=== PATIENT | male | born 1940 | race Caucasian/White ===

== ENCOUNTER 2020-10-15 09:01 | Observation (INO) | payer MEDICARE ==
[2020-10-15] VITALS (10 sets, daily range): BP systolic 147–182; BP diastolic 54–81
[~2020-10-15] VITALS: Ht 177.8 cm; Wt 81.2 kg
[~2020-10-15 09:01] MED LIST: ALLO100T PO; AMLO-257 PO; ASPI-556 PO; CHLO25TA3 PO; GEMF600T89 PO; LOSA100T58 PO; LOVA40TA2 PO; OMEG1CAP67 PO; VITA1CAP20 PO
[2020-10-15 10:09] LABS: BASOPHILS % (AUTO) 0.5 % (0.0-5.0); EOSINOPHILS % (AUTO) 1.6 % (0.0-8.0); HEMATOCRIT 30.9 % (42-54); LYMPHOCYTES % (AUTO) 11.8 % (21.0-51.0); MEAN CORPUSCULAR HEMOGLOBIN 31.3 pg (27.0-33.0); MEAN CORPUSCULAR VOLUME 92.2 fL (79-99); MONOCYTES % (AUTO) 6.8 % (3.0-13.0); NEUTROPHILS % (AUTO) 78.8 % (40.0-77.0); PLATELET COUNT (AUTO) 406 K/uL (130-400); RED BLOOD CELL COUNT(AUTO) 3.35 MIL/uL (4.50-6.20); RED CELL DISTRIBUTION WIDTH 15.3 % (11.0-15.5); WHITE BLOOD COUNT (AUTO) 8.3 K/uL (4.8-10.8)
[2020-10-15 10:21] LABS: CREATININE 1.6 mg/dL (0.5-1.5); POTASSIUM 3.8 mmol/L (3.5-5.1)
[2020-10-15 10:24] LABS: PROTHROMBIN TIME 10.9 SEC (9.6-11.6)
[2020-10-15 10:26] LABS: PARTIAL THROMBOPLASTIN TIME 26.5 SEC (26.3-35.5)
[2020-10-15] MEDS ORDERED: ASPI-1197 PO (11:05)
[2020-10-15] MEDS ORDERED: LOVA40TA2 PO (11:05)
[2020-10-15] MEDS ORDERED: CHLO25TA3 PO (11:05)
[2020-10-15] MEDS ORDERED: VITA1TAB39 PO (11:05)
[2020-10-15] MEDS ORDERED: FISH1CAP63 PO (11:05)
[2020-10-15] MEDS ORDERED: ALLO100T PO (11:05)
[2020-10-15] MEDS ORDERED: AMLO-257 PO (11:05)
[2020-10-15] MEDS ORDERED: LOSA100T58 PO (11:05)
[2020-10-15] MEDS ORDERED: GEMF600T89 PO (11:05)
[2020-10-15] MEDS ORDERED: CHOL500050 PO (11:05)
[2020-10-15] MEDS ORDERED: ACETAMINOPHEN 325 MG TAB PO PRN (12:00)
[2020-10-15] MEDS ORDERED: GEMFIBROZIL 600 MG TABLET PO SCH (21:00)
[2020-10-15] MEDS ORDERED: LOSARTAN 100 MG TABLET PO SCH (21:00)
[2020-10-15] MEDS ORDERED: Lovastatin 40 MG PO SCH (21:00)
[2020-10-15] MEDS: ALLOPURINOL 100 MG TABLET PO SCH (21:28)
[2020-10-16] VITALS: BP 161/81
[2020-10-16 04:00] VITALS: BP 179/59
[2020-10-16 04:33] LABS: BASOPHILS % (AUTO) 0.4 % (0.0-5.0); EOSINOPHILS % (AUTO) 1.9 % (0.0-8.0); HEMATOCRIT 27.8 % (42-54); LYMPHOCYTES % (AUTO) 11.8 % (21.0-51.0); MEAN CORPUSCULAR HEMOGLOBIN 30.9 pg (27.0-33.0); MEAN CORPUSCULAR HGB CONC 33.1 g/dL (32.0-36.0); MEAN CORPUSCULAR VOLUME 93.3 fL (79-99); MONOCYTES % (AUTO) 7.1 % (3.0-13.0); NEUTROPHILS % (AUTO) 78.4 % (40.0-77.0); PLATELET COUNT (AUTO) 332 K/uL (130-400); RED BLOOD CELL COUNT(AUTO) 2.98 MIL/uL (4.50-6.20); RED CELL DISTRIBUTION WIDTH 15.2 % (11.0-15.5); WHITE BLOOD COUNT (AUTO) 8.1 K/uL (4.8-10.8)
[2020-10-16 05:05] LABS: CREATININE 1.7 mg/dL (0.5-1.5); POTASSIUM 3.8 mmol/L (3.5-5.1)
[2020-10-16] MEDS ORDERED: CHOLECALCIFEROL PO SCH (07:30)
[2020-10-16] MEDS: ALLOPURINOL 100 MG TABLET PO SCH (08:10)
[2020-10-16] MEDS ORDERED: [UNRECOGNIZED DRUG - OTHER] PO SCH (09:00)
[2020-10-16] MEDS ORDERED: Chlorthalidone 25 MG PO SCH (09:00)
[2020-10-16] MEDS ORDERED: VITAMIN B COMPLEX 1 CAPSULE PO SCH (09:00)
[2020-10-16] MEDS ORDERED: B COMPLEX WITH VITAMIN C PO SCH (09:00)
[2020-10-16] MEDS ORDERED: AMLODIPINE 5 MG TAB PO SCH (09:00)
[2020-10-16 09:26] VITALS: BP 164/68
== END 2020-10-16 12:45 | disposition home or self-care (01) ==
LOC: 3AH 09:01 → EDSTATUS 10:00
PROVIDERS: ADMIT Internal Medicine Nephrology; ATTEND Internal Medicine Nephrology
DX: R80.9 Proteinuria, unspecified (principal); I10 Essential (primary) hypertension; N28.1 Cyst of kidney, acquired; M10.9 Gout, unspecified; E78.5 Hyperlipidemia, unspecified; D64.9 Anemia, unspecified; I73.9 Peripheral vascular disease, unspecified; H54.62 Unqualified visual loss, left eye, normal vision right eye; F17.200 Nicotine dependence, unspecified, uncomplicated; Z90.49 Acquired absence of other specified parts of digestive tract; Z79.899 Other long term (current) drug therapy
CPT/HCPCS: 36415 ×2; 50200; 76942; 80048 ×2; 85025 ×2; 85610; 85730; 88305; 88313; 88346; 88348; 88350; G0378 ×26; G0379

== ENCOUNTER → 2022-01-06 | Outpatient (CLI) | payer MEDICARE ==
[~2022-01-06] MED LIST changes: +ASPI-1197 PO; -ASPI-556 PO; +CHOL500050 PO; +FISH1CAP63 PO; -OMEG1CAP67 PO; -VITA1CAP20 PO; +VITA1TAB39 PO
== END | disposition home or self-care (01) ==
LOC: SHCH 07:41
PROVIDERS: ATTEND Internal Medicine Cardiovascular Disease
DX: I11.9 Hypertensive heart disease without heart failure (principal); I49.3 Ventricular premature depolarization; E78.5 Hyperlipidemia, unspecified; R18.8 Other ascites
CPT/HCPCS: 93306

== ENCOUNTER 2023-09-29 10:39 | Inpatient (IN) | payer MEDICARE ==
[~2023-09-29] VITALS: Ht 180.3 cm; Wt 86.5 kg
[~2023-09-29 10:39] MED LIST changes: -LOSA100T58 PO; +LOSA100T59 PO
[2023-09-29 11:24] LABS: BASOPHILS # (AUTO) 0.02 K/uL (0.00-0.20); BASOPHILS % (AUTO) 0.2 % (0.0-5.0); EOSINOPHILS # (AUTO) 0.04 K/uL (0.00-0.70); EOSINOPHILS % (AUTO) 0.5 % (0.0-8.0); IMMATURE GRANULOCYTE ABSOLUTE 0.03 K/uL (0-1); LYMPHOCYTES # (AUTO) 0.5 K/uL (1.0-4.8); LYMPHOCYTES % (AUTO) 6.3 % (21.0-51.0); MEAN CORPUSCULAR HEMOGLOBIN 27.6 pg (27.0-33.0); MEAN CORPUSCULAR VOLUME 83.7 fL (79-99); MONOCYTES # (AUTO) 0.6 K/uL (0.1-1.0); MONOCYTES % (AUTO) 7.2 % (3.0-13.0); NEUTROPHILS # (AUTO) 7.1 K/uL (1.8-7.7); NEUTROPHILS % (AUTO) 85.4 % (40.0-77.0); PLATELET COUNT (AUTO) 425 K/uL (130-400); RED BLOOD CELL COUNT(AUTO) 2.46 MIL/uL (4.50-6.20); WHITE BLOOD COUNT (AUTO) 8.4 K/uL (4.8-10.8)
[2023-09-29 11:42] LABS: ALBUMIN 2.3 g/dL (3.5-5.0); BILIRUBIN,TOTAL 0.3 mg/dL (0.2-1.0); CREATININE 4.6 mg/dL (0.5-1.3); TOTAL PROTEIN, SERUM 5.8 g/dL (6.0-8.3)
[2023-09-29 11:44] LABS: B-TYPE NATRIURETIC PEPTIDE 2230 pg/mL (0-100)
[2023-09-29 11:46] LABS: HEMATOCRIT 20.6 % (42-54)
[2023-09-29 12:13] LABS: ABG BASE EXCESS 0.3 mmol/L (-2.0-3.0); ABG HCO3 23.6 mmol/L (21.0-28.0); ABG OXYGEN SATURATION 96.5 % (95.0-99.0); ABG PCO2 34 mmHg (35-48); ABG PH 7.454 (7.35-7.450); PO2, ARTERIAL BG 81.1 mmHg (83.0-108.0); VENT MODE, BG RA (ROOM AIR)
[2023-09-29] MEDS: POTASSIUM BICARB/CIT AC 25 MEQ TABLET.EFF PO ONE (12:57)
[2023-09-29] MEDS: BUMETANIDE 1MG/4ML VIAL IVP SCH ×2 (12:57→23:07)
[2023-09-29] MEDS ORDERED: PROP225C8 PO (13:56)
[2023-09-29] MEDS ORDERED: ROSU5TAB12 PO (13:56)
[2023-09-29] MEDS ORDERED: TORS20TA4 PO (13:56)
[2023-09-29] MEDS ORDERED: AMLO-258 PO (13:56)
[2023-09-29] MEDS ORDERED: EMPA10TA PO (13:56)
[2023-09-29] MEDS ORDERED: SODI650T PO (13:56)
[2023-09-29] MEDS ORDERED: LACTULOSE 20 GM/30 ML UDCUP PO PRN (15:30)
[2023-09-29] MEDS ORDERED: LABETALOL 20MG SYG IV PRN (15:30)
[2023-09-29] MEDS ORDERED: CLONIDINE HCL 0.1 MG TABLET PO PRN (15:30)
[2023-09-29] MEDS ORDERED: TEMAZEPAM 15 MG CAPSULE PO PRN (15:30)
[2023-09-29] MEDS ORDERED: ONDANSETRON 4MG INJ IVP PRN (15:30)
[2023-09-29] MEDS ORDERED: ACETAMINOPHEN 650 MG SUPPOSITORY RC PRN (15:30)
[2023-09-29] MEDS ORDERED: HYDRALAZINE 20MG/ML VIAL IV PRN (15:30)
[2023-09-29 15:44] LABS: APPEARANCE,URINE CLEAR (CLEAR); BILIRUBIN,URINE NEGATIVE (NEGATIVE); COLOR,URINE LIGHT-YELLOW (YELLOW); GLUCOSE, URINE (UA) 50 mg/dL (NEGATIVE); KETONES,URINE NEGATIVE (NEGATIVE); LEUKOCYTE ESTERASE ,URINE NEGATIVE Leu/uL (NEGATIVE); NITRATE,URINE NEGATIVE (NEGATIVE); OCCULT BLOOD,URINE NEGATIVE (NEGATIVE); PROTEIN,URINE 100 mg/dL (NEGATIVE); UROBILINOGEN,URINE 0.2 mg/dL (0.2-1.0)
[2023-09-29 15:45] LABS: ADD UA MICROSCOPIC YES
[2023-09-29 15:52] LABS: BACTERIA,URINE Rare /HPF (None Seen); RBC,URINE 0-1 /HPF (0-1); SQUAMOUS EPITHELIAL CELL,UR Rare /HPF (0-2); WBC,URINE 0-1 /HPF (0-1)
[2023-09-29 15:53] VITALS: PULSE 65; RESP 20
[2023-09-29] MEDS: ALBUTEROL 0.083% 2.5 MG/3 ML INH IH PRN (15:53)
[2023-09-29 15:54] VITALS: PULSE 65; RESP 20; O2SAT 96
[2023-09-29] MEDS: INSULIN HUMULIN R 100 UNIT/ML 3ML SQ SCH (16:30)
[2023-09-29 16:35] LABS: % IRON SATURATION 26.9 % (30-44)
[2023-09-29] MEDS ORDERED: CHLO50TA PO (21:37)
[2023-09-29] MEDS ORDERED: FOLI1TAB85 PO (21:37)
[2023-09-29 22:40] VITALS: O2SAT 99
[2023-09-29 22:54] VITALS: RESP 19; O2SAT 99
[2023-09-29 23:09] LABS: SARS-CoV-2, RNA, NAAT NEGATIVE SARS CoV-2 (NEGATIVE)
[2023-09-29 23:11] LABS: INFLUENZA TYPE A NEGATIVE FOR TYPE A (NEG); INFLUENZA TYPE B NEGATIVE FOR TYPE B (NEG)
[2023-09-30] VITALS (16 sets, daily range): BP systolic 129–150; BP diastolic 43–56; PULSE 55–65; RESP 18–20; O2SAT 97–99
[2023-09-30 04:16] LABS: HEMOGLOBIN A1C 4.8 % (4.0-6.0)
[2023-09-30 04:17] LABS: INR 0.96 (0.85-1.15); PROTHROMBIN TIME 11.4 SEC (9.6-11.6)
[2023-09-30 04:19] LABS: PARTIAL THROMBOPLASTIN TIME 30.9 SEC (26.3-35.5)
[2023-09-30 04:32] LABS: BILIRUBIN,TOTAL 0.2 mg/dL (0.2-1.0); CREATININE 4.5 mg/dL (0.5-1.3); MAGNESIUM 2.5 mg/dL (1.80-2.40); PHOSPHORUS 5.9 mg/dL (2.5-4.9); POTASSIUM 3.3 mmol/L (3.5-5.1); THYROID STIMULATING HORMONE 2.21 uIU/mL (0.36-3.74); URIC ACID 9.7 mg/dL (2.6-7.2)
[2023-09-30 06:20] LABS: BASOPHILS # (AUTO) 0.02 K/uL (0.00-0.20); BASOPHILS % (AUTO) 0.3 % (0.0-5.0); EOSINOPHILS # (AUTO) 0.12 K/uL (0.00-0.70); EOSINOPHILS % (AUTO) 1.6 % (0.0-8.0); IMMATURE GRANULOCYTE ABSOLUTE 0.03 K/uL (0-1); LYMPHOCYTES # (AUTO) 0.6 K/uL (1.0-4.8); LYMPHOCYTES % (AUTO) 8.1 % (21.0-51.0); MEAN CORPUSCULAR HEMOGLOBIN 27.7 pg (27.0-33.0); MEAN CORPUSCULAR HGB CONC 32.3 g/dL (32.0-36.0); MEAN CORPUSCULAR VOLUME 85.7 fL (79-99); MONOCYTES # (AUTO) 0.7 K/uL (0.1-1.0); MONOCYTES % (AUTO) 9.7 % (3.0-13.0); NEUTROPHILS # (AUTO) 6.1 K/uL (1.8-7.7); NEUTROPHILS % (AUTO) 79.9 % (40.0-77.0); PLATELET COUNT (AUTO) 400 K/uL (130-400); RED BLOOD CELL COUNT(AUTO) 2.24 MIL/uL (4.50-6.20); RED CELL DISTRIBUTION WIDTH 16.2 % (11.0-15.5); WHITE BLOOD COUNT (AUTO) 7.6 K/uL (4.8-10.8)
[2023-09-30 06:23] LABS: HEMATOCRIT 19.2 % (42-54)
[2023-09-30] MEDS ORDERED: PANTOPRAZOLE 40 MG/VIAL IVP SCH (09:00)
[2023-09-30] MEDS ORDERED: PROPAFENONE HCL 225 MG PO SCH (09:00)
[2023-09-30] MEDS: Vitamin B Complex/Vit C/Folic Acid PO SCH ×2 (09:00→09:09)
[2023-09-30] MEDS: PANTOPRAZOLE 40 MG TAB DR PO SCH (09:09)
[2023-09-30] MEDS: SODIUM BICARBONATE 650 MG TAB PO SCH (09:10)
[2023-09-30] MEDS: VITAMIN B COMPLEX 1 CAPSULE PO SCH (09:11)
[2023-09-30] MEDS: PROPAFENONE HCL 225 MG PO SCH (11:59)
[2023-09-30] MEDS: ROSUVASTATIN CALCIUM 5 MG PO SCH (12:00)
[2023-09-30] MEDS ORDERED: SOD FERRIC GLUC COMPLEX/SUC 125 MG in 0.9%NACL 100ML 100 ML IV SCH (12:30)
[2023-09-30] MEDS ORDERED: COMPOUND IV MISC 1 EACH IVSOLN MISC PRN (13:00)
[2023-09-30] MEDS: EPOETIN ALFA-EPBX (NON-ESRD) 10,000 UNIT/ML VIAL SQ SCH (15:27)
[2023-09-30] MEDS: BUMETANIDE 1MG/4ML VIAL IVP SCH (15:27)
[2023-09-30] MEDS: IRON SUCROSE COMPLEX 300 MG in 0.9% NACL 250ML 250 ML IV SCH (15:28)
[2023-09-30] MEDS: AMLODIPINE 5 MG TAB PO SCH (20:20)
[2023-09-30] MEDS: (Rosuvastatin Calcium 5 MG) PO SCH (21:33)
[2023-10-01] VITALS (12 sets, daily range): BP systolic 135–155; BP diastolic 44–88; PULSE 58–73; RESP 16–20; O2SAT 95–98
[2023-10-01 03:59] LABS: MEAN CORPUSCULAR HEMOGLOBIN 28.2 pg (27.0-33.0); MEAN CORPUSCULAR HGB CONC 33.7 g/dL (32.0-36.0); MEAN CORPUSCULAR VOLUME 83.9 fL (79-99); RED BLOOD CELL COUNT(AUTO) 2.48 MIL/uL (4.50-6.20); RED CELL DISTRIBUTION WIDTH 15.6 % (11.0-15.5); WHITE BLOOD COUNT (AUTO) 8.7 K/uL (4.8-10.8)
[2023-10-01 04:12] LABS: HEMATOCRIT 20.8 % (42-54)
[2023-10-01 04:22] LABS: ALBUMIN 1.7 g/dL (3.5-5.0); BILIRUBIN,TOTAL 0.3 mg/dL (0.2-1.0); CREATININE 4.1 mg/dL (0.5-1.3); MAGNESIUM 2.1 mg/dL (1.80-2.40); PHOSPHORUS 5.4 mg/dL (2.5-4.9); TOTAL PROTEIN, SERUM 4.7 g/dL (6.0-8.3)
[2023-10-01 04:33] LABS: POTASSIUM 2.9 mmol/L (3.5-5.1)
[2023-10-01] MEDS: KCL 20 MEQ ERTAB PO SCH ×3 (06:43→20:39)
[2023-10-01] MEDS: LOSARTAN 100 MG TABLET PO SCH (08:57)
[2023-10-01] MEDS: EMPAGLIFLOZIN 10MG TABLET PO SCH (08:57)
[2023-10-01] MEDS: ACETAMINOPHEN 325 MG TAB PO PRN (20:43)
[2023-10-02] VITALS (13 sets, daily range): BP systolic 130–141; BP diastolic 40–64; PULSE 60–83; RESP 18–22; O2SAT 91–100
[2023-10-02 03:56] LABS: HEMATOCRIT 21.4 % (42-54); MEAN CORPUSCULAR HEMOGLOBIN 28.1 pg (27.0-33.0); MEAN CORPUSCULAR HGB CONC 33.2 g/dL (32.0-36.0); MEAN CORPUSCULAR VOLUME 84.6 fL (79-99); RED BLOOD CELL COUNT(AUTO) 2.53 MIL/uL (4.50-6.20); RED CELL DISTRIBUTION WIDTH 15.9 % (11.0-15.5); WHITE BLOOD COUNT (AUTO) 7.9 K/uL (4.8-10.8)
[2023-10-02 04:11] LABS: CREATININE 4.1 mg/dL (0.5-1.3); MAGNESIUM 2.1 mg/dL (1.80-2.40); PHOSPHORUS 5.2 mg/dL (2.5-4.9); POTASSIUM 4.2 mmol/L (3.5-5.1)
[2023-10-02] MEDS: KCL 20 MEQ ERTAB PO SCH (10:22)
[2023-10-02] MEDS: HYDRALAZINE 25MG TABLET PO SCH (10:22)
[2023-10-02] MEDS: EPOETIN ALFA-EPBX (NON-ESRD) 10,000 UNIT/ML VIAL SQ SCH (13:33)
[2023-10-02] MEDS: BUMETANIDE 1 MG TAB PO SCH (20:42)
[2023-10-02] MEDS ORDERED: BUMETANIDE 1MG/4ML VIAL IVP SCH (21:00)
[2023-10-03 00:12] VITALS: BP 144/49; PULSE 62; RESP 20
[2023-10-03 04:18] VITALS: BP 127/49; PULSE 71; RESP 18
[2023-10-03 05:00] LABS: HEMATOCRIT 22.4 % (42-54); MEAN CORPUSCULAR HEMOGLOBIN 28.4 pg (27.0-33.0); MEAN CORPUSCULAR HGB CONC 33.5 g/dL (32.0-36.0); MEAN CORPUSCULAR VOLUME 84.8 fL (79-99); RED BLOOD CELL COUNT(AUTO) 2.64 MIL/uL (4.50-6.20); WHITE BLOOD COUNT (AUTO) 8.7 K/uL (4.8-10.8)
[2023-10-03 05:16] LABS: CREATININE 4.2 mg/dL (0.5-1.3); MAGNESIUM 2.1 mg/dL (1.80-2.40)
[2023-10-03 06:48] VITALS: PULSE 73; RESP 18
[2023-10-03 06:50] VITALS: PULSE 73; RESP 18; O2SAT 98
[2023-10-03 07:36] VITALS: BP 132/78; PULSE 73; RESP 18
[2023-10-03 08:12] VITALS: O2SAT 96
[2023-10-03] MEDS ORDERED: HYDR25 PO (08:57)
[2023-10-03] MEDS ORDERED: BUME1TAB6 PO (08:57)
== END 2023-10-03 10:25 | disposition home or self-care (01) | DRG 291 ==
LOC: EDH 10:39 → EDHIP 15:07 → 2AH 21:41
PROVIDERS: ADMIT Internal Medicine Critical Care Medicine; ATTEND Internal Medicine Critical Care Medicine
PROC: 30233N1 Transfusion of Nonautologous Red Blood Cells into Peripheral Vein, Percutaneous Approach (ICD-10-PCS; principal; 2023-09-30)
DX: I13.2 Hypertensive heart and chronic kidney disease with heart failure and with stage 5 chronic kidney disease, or end stage renal disease (principal); I50.33 Acute on chronic diastolic (congestive) heart failure; J96.01 Acute respiratory failure with hypoxia; N18.5 Chronic kidney disease, stage 5; E87.1 Hypo-osmolality and hyponatremia; E44.0 Moderate protein-calorie malnutrition; N17.9 Acute kidney failure, unspecified; I48.20 Chronic atrial fibrillation, unspecified; I48.0 Paroxysmal atrial fibrillation; Z20.822 Contact with and (suspected) exposure to COVID-19; E11.22 Type 2 diabetes mellitus with diabetic chronic kidney disease; D63.8 Anemia in other chronic diseases classified elsewhere; E87.6 Hypokalemia; E78.5 Hyperlipidemia, unspecified; Z79.84 Long term (current) use of oral hypoglycemic drugs; Z79.899 Other long term (current) drug therapy; Z68.26 Body mass index [BMI] 26.0-26.9, adult
CPT/HCPCS: 36415; 36600; 71045; 73560; 76376; 76536; 80048; 80053; 80061; 81001; 82270; 82550; 82728; 82803; 82948; 83036; 83540; 83550; 83735; 83880; 84100; 84132; 84443; 84484; 84550; 85025; 85027; 85378; 85610; 85730; 86850; 86900; 86901; 86923; 87040; 87635; 87804; 93005; 93306; 93356; 94640; 94760; 96374; 96376; G0378; J1756; J2916; J3490; J7050; P9016; A4600; Q5106

== ENCOUNTER → 2023-10-12 | Outpatient (CLI) | payer MEDICARE ==
[~2023-10-12] MED LIST changes: -ALLO100T PO; -AMLO-257 PO; +AMLO-258 PO; -ASPI-1197 PO; +BUME1TAB6 PO; -CHLO25TA3 PO; +EMPA10TA PO; -FISH1CAP63 PO; +FOLI1TAB85 PO; -GEMF600T89 PO; +HYDR25 PO; -LOSA100T59 PO; -LOVA40TA2 PO; +PROP225C8 PO; +ROSU5TAB43 PO; +SODI650T PO
== END | disposition home or self-care (01) ==
LOC: SHCH 14:25
PROVIDERS: ATTEND Internal Medicine Cardiovascular Disease
DX: I08.8 Other rheumatic multiple valve diseases (principal); R42 Dizziness and giddiness; R00.1 Bradycardia, unspecified; I49.3 Ventricular premature depolarization
CPT/HCPCS: 93306

== ENCOUNTER → 2023-10-20 | Outpatient (CLI) | payer MEDICARE ==
[~2023-10-20] MED LIST changes: +AMLO-257 PO
== END | disposition home or self-care (01) ==
LOC: SHCH 15:02
PROVIDERS: ATTEND Internal Medicine Cardiovascular Disease
DX: I65.23 Occlusion and stenosis of bilateral carotid arteries (principal); R42 Dizziness and giddiness; R06.02 Shortness of breath; I49.3 Ventricular premature depolarization; R09.89 Other specified symptoms and signs involving the circulatory and respiratory systems
CPT/HCPCS: 93880

== ENCOUNTER → 2024-01-18 | Outpatient (CLI) | payer MEDICARE ==
[~2024-01-18] MED LIST changes: -AMLO-258 PO; +IOHEXOL 350 MG/ML 100ML INFUS..BTL IV ONE; +IOHEXOL-350 75 ML VIAL IV ONE; +PANT40TA PO; -PROP225C8 PO
== END | disposition home or self-care (01) ==
LOC: RAH 07:29
PROVIDERS: ATTEND Internal Medicine Cardiovascular Disease
DX: I65.23 Occlusion and stenosis of bilateral carotid arteries (principal); J90 Pleural effusion, not elsewhere classified; M47.815 Spondylosis without myelopathy or radiculopathy, thoracolumbar region; R07.9 Chest pain, unspecified
CPT/HCPCS: 70498; 75574; Q9967 ×2

== ENCOUNTER 2024-03-27 05:46 | Observation (INO) | payer MEDICARE ==
--- NOTE | 2024-03-24 09:02 | EKG ---
[facility] Test Date: 2024-03-24 Test Time: 08:41:58 Pat Name: NANCY RATLIFF Department: [facility] Room: 232 Gender: M Brief Writer: [id number] : 1940 Requested By: Magdiel NAVARRO Order Number: [id number] Reading MD: Gustavo Ernandez Measurements Intervals Morrice Rate: 60 P: -1 AL: 310 QRS: -45 QRSD: 144 T: -82 QT: 524 QTc: 523 Interpretive Statements Sinus rhythm Prolonged AL interval Right bundle branch block Inferior infarct, old Consider anteroseptal infarct Compared to ECG 10/31/2023 13:33:53 Ventricular premature complex(es) no longer present Left-axis deviation no longer present Myocardial infarct finding still present Electronically Signed On 03-27-2024 13:06:22 DATA INTEGRATION DEVELOPER by Gustavo Ernandez Please click the below link to view image of tracing.
[2024-03-24 09:13] VITALS: BP 118/60; PULSE 64; RESP 18; TEMP 97.3
--- NOTE | 2024-03-24 10:02 | HMCIMG ---
CHEST 1VW HISTORY: Preop COMPARISON: 11/01/2023 FINDINGS: A frontal projection of the chest was obtained. Prominent interstitial markings are seen with possible superimposed infiltrates. Small left pleural effusion is seen. The heart is borderline enlarged. Degenerative changes are seen. Aortic calcifications are seen. IMPRESSION: 1. Prominent interstitial markings are seen with possible superimposed infiltrates.
[2024-03-24 10:11] LABS: BASOPHILS # (AUTO) 0.03 K/uL (0.00-0.20); BASOPHILS % (AUTO) 0.4 % (0.0-5.0); EOSINOPHILS # (AUTO) 0.04 K/uL (0.00-0.70); EOSINOPHILS % (AUTO) 0.5 % (0.0-8.0); HEMATOCRIT 25.6 % (42-54); IMMATURE GRANULOCYTE ABSOLUTE 0.04 K/uL (0-1); LYMPHOCYTES # (AUTO) 0.6 K/uL (1.0-4.8); LYMPHOCYTES % (AUTO) 8.1 % (21.0-51.0); MEAN CORPUSCULAR HEMOGLOBIN 32.1 pg (27.0-33.0); MEAN CORPUSCULAR HGB CONC 31.3 g/dL (32.0-36.0); MEAN CORPUSCULAR VOLUME 102.8 fL (79-99); MONOCYTES # (AUTO) 0.7 K/uL (0.1-1.0); MONOCYTES % (AUTO) 8.7 % (3.0-13.0); NEUTROPHILS # (AUTO) 6.3 K/uL (1.8-7.7); NEUTROPHILS % (AUTO) 81.8 % (40.0-77.0); PLATELET COUNT (AUTO) 378 K/uL (130-400); RED BLOOD CELL COUNT(AUTO) 2.49 MIL/uL (4.50-6.20); RED CELL DISTRIBUTION WIDTH 18.1 % (11.0-15.5); WHITE BLOOD COUNT (AUTO) 7.7 K/uL (4.8-10.8)
[2024-03-24 10:16] LABS: CREATININE 4.6 mg/dL (0.5-1.3); POTASSIUM 4.3 mmol/L (3.5-5.1)
[2024-03-24 10:22] LABS: INR 1.1 (0.85-1.15); PROTHROMBIN TIME 11.8 SEC (9.6-11.6)
[2024-03-24 10:35] LABS: B-TYPE NATRIURETIC PEPTIDE 1580 pg/mL (0-100)
[2024-03-24 10:41] LABS: WBC MORPHOLOGY CONSISTENT W/DIFF
[~2024-03-27] VITALS: Ht 180.3 cm; Wt 81.1 kg
[2024-03-27] VITALS (26 sets, daily range): BP systolic 103–134; BP diastolic 39–64; PULSE 51–67; RESP 13–20; TEMP 97.2–98.6; O2SAT 98
[~2024-03-27 05:46] MED LIST changes: +ASPI-1005 PO; -BUME1TAB6 PO; +CHOL200059 PO; -CHOL500050 PO; +CINA30TA5 PO; -EMPA10TA PO; +FISH12002 PO; -HYDR25 PO; -IOHEXOL 350 MG/ML 100ML INFUS..BTL IV ONE; -IOHEXOL-350 75 ML VIAL IV ONE; +METO-408 PO; -PANT40TA PO; +PANT40TA54 PO; +SEVELAMER CARBONATE PO; -SODI650T PO; -VITA1TAB39 PO
[2024-03-27] MEDS: 0.9%NACL 1000ML 1,000 ML IV ONE (06:34)
[2024-03-27] MEDS ORDERED: LIDOCAINE HCL 400MG/20ML VIAL ONE (07:10)
[2024-03-27] MEDS ORDERED: SODIUM BICARB 50MEQ 50ML VIAL 50 ML ONE (07:10)
[2024-03-27] MEDS ORDERED: HEParin 10,000 UNIT/10ML (1,000 UNIT/ML) VIAL ONE (07:11)
[2024-03-27] MEDS ORDERED: HEParin-NS 1,000 UNIT/500 ML 1,000 ML IV ONE (07:11)
[2024-03-27] MEDS ORDERED: IOHEXOL 350 MG/ML 100ML INFUS..BTL IV ONE (07:11)
[2024-03-27] MEDS ORDERED: NITROGLYCERIN 50MG VIAL ONE (07:11)
[2024-03-27] MEDS ORDERED: MEPERIDINE-PF 25 MG/ML SYG ONE (07:33)
[2024-03-27] MEDS ORDERED: MIDAZOLAM HCL 1 MG/ML 2ML VIAL ONE (07:33)
[2024-03-27] MEDS ORDERED: ATROPINE 1MG SYG IVP ONE (07:44)
--- NOTE | 2024-03-27 10:14 | CCATH ---
PROCEDURES: * Left heart catheterization. * Selective right and left coronary arteriogram. * Selective right and left carotid artery angiogram. * Left subclavian artery angiogram. INDICATIONS: * Severe coronary artery disease. * Severe bilateral carotid artery stenosis. COMPLICATIONS: None. TOTAL CONTRAST: 100 mL. DESCRIPTION OF PROCEDURE: The patient was taken to the cardiac catheterization lab after the appropriate operative consents were signed. He was prepped and draped in the usual fashion. After conscious sedation was administered, the right common femoral artery region was infiltrated with 2% Xylocaine without epinephrine. Attempts at advancing a wire through the right common femoral artery was not successful because of calcification and stenosis. We utilized micropuncture sleep sheath and imaged through that and we identified an 80% plus lesion in the right common femoral artery. The femoral arteries and iliac arteries appeared to be heavily calcified. Utilizing a Glidewire, we were able to advance the catheter through the region and we were able to place a 6-Mongolian sheath. At this point, an FL4 6-Mongolian catheter was advanced and selectively placed in the aortic root. Imaging identified a heavily calcified thoracic and abdominal aorta as well as a calcified aortic arch. At this point, the catheter was engaged in the ostium of the left main. Catheter dampening and ventricularization ensued immediately. Imaging was obtained in multiplane identifying a heavily calcified coronaries, the left main ostium had a 90% plus stenotic lesion and the left main trifurcated into an LAD, circumflex, and intermediate. The LAD was a moderately large vessel that gave rise to several diagonals and septal perforators. It had mild luminal irregularities. Intermediate was small to moderately sized vessel that had no significant stenotic lesions. The circumflex was moderately large vessel that gave rise to several marginal branches and ongoing circ. He had an ostial calcified 80% stenotic lesion. At this point, the catheter was removed and an FR4 6-Mongolian catheter was advanced and placed in the left ventricular cavity. Left ventricular end-diastolic pressure measurement was obtained. Ventriculography was deferred. The patient has chronic kidney disease. Pullback revealed no aortic stenosis. The EF was 50-55% by noninvasive studies. The catheter was then engaged in the ostium of the right coronary artery. Once again catheter dampening ensued immediately. Imaging was obtained and identified 90% plus stenotic lesion in the ostium. Right coronary artery was a moderately sized vessel that gave rise to acute marginal, small PDA, PLVB system. At this point, the catheter was withdrawn and engaged in the right common carotid artery. Imaging was obtained in multiplane identifying the distal right common carotid artery calcified stenotic lesion that extended into the internal carotid artery. This stenotic lesion was rated about 80-90%. The intracerebral circulation was normal. The right external carotid artery was normal. The catheter was then engaged in the left subclavian artery, left subclavian artery was imaged identifying 30% proximal lesion before the takeoff of the vertebral and the mammary artery. The vertebra was small to moderate, had an ostial 80% stenotic lesion. At this point, we utilized ____ and were able to selectively engage the left common carotid artery. This was imaged in multiplane identifying a patent left common carotid artery with calcified bifurcation and severe stenotic lesion once again at 80-90% in the left internal carotid artery and distal left common carotid artery. The intracerebral circulation was normal. At this point, the procedure was completed, manual compression was utilized for hemostasis given the patient's degree of femoral disease. The patient tolerated the procedure well and left the director of cardiac cath lab in stable condition. FINAL IMPRESSION: * Critical ostial RCA and circumflex stenosis as well as critical left ostial left main and ostial RCA stenosis with heavily calcified ostial circumflex stenosis. * No aortic stenosis. * Preserved left ventricular systolic function by echocardiography. * Severe bilateral carotid artery stenosis. * Peripheral vascular disease. * Heavily calcified vessels. PLAN: This patient's prognosis is guarded given the degree of calcification of his vessels in the aortic root. I will obtain a surgical opinion in regards to his management and we will make additional recommendations after that. TID: [id number] RECEIPT: [id number]
[2024-03-27] MEDS: 0.9%NACL 1000ML 1,000 ML IV SCH (11:00)
[2024-03-27] MEDS ORDERED: ondanSETRON 4MG INJ IV PRN (11:30)
[2024-03-27] MEDS ORDERED: acetaMINOPHEN 325 MG TAB PO PRN ×2 (11:30)
[2024-03-27] MEDS ORDERED: guaiFENesin SUGAR-FREE 100 MG/5 ML UDCUP PO PRN (11:30)
[2024-03-27] MEDS ORDERED: LACTULOSE 20 GM/30 ML UDCUP PO PRN (11:30)
[2024-03-27] MEDS ORDERED: NITROGLYCERIN 0.4 MG SL TAB SL PRN (11:30)
[2024-03-27] MEDS: INSULIN humuLIN R 100 UNIT/ML 3ML SQ SCH (11:30)
[2024-03-27] MEDS ORDERED: doCUSate SODIUM 100 MG CAP PO PRN (11:30)
[2024-03-27] MEDS ORDERED: hydrALAZine 25MG TABLET PO PRN (11:30)
[2024-03-27] MEDS ORDERED: polyETHYLene GLYCol 3350 17 GM POWD.PACK PO PRN (11:30)
--- NOTE | 2024-03-27 11:35 | HP ---
[facility] HISTORY & PHYSICAL Date Patient Seen: Mar 27, 2024 Time of Visit: 11:21 Supervising Physician: DR. BEARD Primary Care Physician: DR. MARY ALEXIS Outpatient Specialists: DR. MALAGON, DR. ESCALANTE, DR. NAVARRO Inpatient Consults: DR. FOX, DR. NAVARRO, DR. MALAGON PROBLEM LIST: Acute on chronic hypoxic respiratory failure Multivessel coronary artery disease Status post elective left heart catheterization on 03/[address] Navarro- CV surgery evaluation Chronic Systolic and Diastolic CHF - POA- per echo 10/12/23 LVEF 40-45% with mildy impaired systolic and grade 2 diastolic dysfunction ESRD on MWF HD Chronic atrial fibrillation Anemia of chronic kidney disease with iron deficiency HX of Left pleural effusion, hypoxemic Respiratory Failure, chronic Hyponatremia, hypertension, hyperlipidemia, DM type II, afib, smoker (30 pack), HPI: This is an 84 year old male with past medical history of ESRD on MWF hemodialysis, AFib, hypertension, diabetes mellitus, hyperlipidemia, current 30 pack year cigarette smoker who came to the hospital for an elective left heart catheterization was found to have multivessel coronary artery disease. According to the patient, he has been having intermittent shortness of breath with orthopnea and dyspnea on exertion. He was admitted on September and October of this year with shortness of breath and progressive kidney disease. He was started on hemodialysis since October. Patient had been compliant with his hemodialysis and his follow ups with specialties. On follow up with his electrophysiology Dr. Escalante for AFib, he was referred to cardiology for CTA. He had a coronary CT angio in December with severely heavily calcified MvCAD. He also has large left pleural effusion. CTA of the neck with bilateral stenosis, 90% of the right ICA and 70 to 80% stenosis of the left ICA. For these reasons, patient was sent for cardiac catheterization for better visualization which he had undergone today. Findings include critical ostial RCA and circumflex stenosis as well as critical left ostial left main and ostial RCA stenosis with heavily calcified ostial circumflex stenosis, no aortic stenosis, severe bilateral carotid artery stenosis, and PVD. He was referred to Cardiovascular surgery for further management. He will be admitted for hemodialysis post IV contrast and pending cardiovascular surgery recommendations. PAST MEDICAL HISTORY ESRD on hemodialysis on MWF Atrial fibrillation Chronic anemia with iron deficiency Hypertension Hyperlipidemia Diabetes mellitus type 2 PAST SURGICAL HISTORY 11/01/23 right Permacath placement 11/04/23 Left AV fistula placement by Dr. Acuña SOCIAL HISTORY Current everyday smoker, 63 years of smoking, 10 to 15 cigarettes a day, now reduced to 1 to 2 cigarettes. Weekly alcohol consumption Denies illicit drug use Lives with Coded Allergies: No Known Drug Allergies (Unverified Allergy, Unknown, 11/06/14) REVIEW OF SYSTEMS: General: No Fever, No Chills, No Night Sweats, No Fatigue, No Malaise, No Appetite HEENT: No Head Aches, No Visual Changes, No Eye Pain, No Ear Pain, No Dysphasia, No Sinus Congestion, No Post Nasal Drip, No Sore Throat Pulmonary: yes Dyspnea; No Cough, No Pleuritic Chest Pain Cardiovascular: No: Chest Pain, Palpitations, Orthopnea, Paroxysmal Noc. Dyspnea, Edema, Lt Headedness Gastrointestinal: No: Nausea, Vomiting, Abdominal Pain, Diarrhea, Constipation, Melena, Hematochezia Genitourinary: No Dysuria, No Frequency, No Incontinence, No Hematuria, No Retention Musculoskeletal: No: other, neck pain, shoulder pain, arm pain, back pain, hand pain, leg pain, foot pain Skin: No Urticaria, No Rash Neurological: No: Weakness, Numbness, Incoordination, Change in speech, Confusion, Seizures PHYSICAL EXAM: GENERAL: alert, weak, awake oriented x 3 HEENT: EOMI, Sclera non icteric, moist mucosa NECK: Supple, no JVD, trachea midline LUNGS: Clear breath sounds bilaterally. No wheezes HEART: Regular rate and rhythm. Normal S1 and S2, without murmurs ABD: Abdomen soft, nontender. Bowel sounds present EXT: No clubbing cyanosis or edema NEURO: Alert and oriented to person, follows commands Vital Signs (last 8hr) Date Time Temp Pulse Resp B/P (MAP) Pulse Ox O2 Delivery O2 Flow Rate FiO2 03/27/24 10:10 97.2 53 17 110/44 97 Room Air 03/27/24 09:55 53 20 115/40 97 Room Air 03/27/24 09:40 56 14 120/42 97 Room Air 03/27/24 09:25 53 13 123/43 98 Room Air 03/27/24 09:15 54 13 131/43 97 Room Air 03/27/24 09:05 21 03/27/24 09:05 97.2 53 20 124/39 98 Room Air 21 03/27/24 06:00 98.4 60 17 118/64 95 Room Air 21 LABS: DIAGNOSTICS / RADIOLOGY RESULTS: REASON: PRE OP ORDERING PHYSICIAN: Magdiel NAVARRO II, MD PROCEDURE: CXR1VW - CHEST 1VW CHEST 1VW HISTORY: Preop COMPARISON: 11/01/2023 FINDINGS: A frontal projection of the chest was obtained. Prominent interstitial markings are seen with possible superimposed infiltrates. Small left pleural effusion is seen. The heart is borderline enlarged. Degenerative changes are seen. Aortic calcifications are seen. IMPRESSION: 1. Prominent interstitial markings are seen with possible superimposed infiltrates. PLAN NEURO: Minimize central acting medications as possible. Maintain fall precautions, adequate lighting during the day PULMONARY: Supplemental 02 as needed. Maintain aspiration precautions at all times Duoneb given history of smoking Nicotine patch if craving No need for steroids Will need simple PFT while here but will need to have complete PFT as outpt with pulmonology CARDIOVASCULAR: Follow hemodynamics. Vital signs per facility protocol S/P LHC with right sheath removal, continue per protocol CV surgery evaluation Resume home cardiac regimen Afib GI & NUTRITION: Continue with nutritional support. Continue stool softeners and laxatives as needed. KIDNEYS & ELECTROLYTES: Strict monitoring of intake, output and overall fluid balance. Avoid nephrotoxic medications to the extent possible. Medications to be dosed according to renal function. Monitor electrolytes and replace as needed Consult to nephrology ENDOCRINE: Maintain blood glucose between 100-180 at all times. Hypoglycemia protocol in place INFECTIOUS DISEASE: Trend temperature, WBC and procalcitonin level Follow cultures, deescalate antibiotics as soon as possible. Panculture if new onset fever ONCOLOGY/HEMATOLOGY/COAGULATION: Monitor for s/s of bleeding Monitor hemoglobin, coagulation studies as needed SKIN: Pressure ulcer prevention per facility protocol Specialty mattress ORTHO/REHAB: Continue PT/OT Prophylaxis: Continue GI and DVT prophylaxis Code Status: Full Resuscitation Disposition: TBD Other: Total patient care time exceeds 35 minutes excluding all procedures. LUIS PITTMAN [facility] Mar 27, 2024 11:35
[2024-03-27] MEDS: IpraTROPium/alBUTERol SULFATE 3 ML SOLUTION IH SCH (11:56)
[2024-03-27] MEDS: sevELAMer HCL 800 MG TABLET PO SCH (12:54)
--- NOTE | 2024-03-27 16:59 | DS ---
[facility] DISCHARGE SUMMARY Date Patient Seen: Mar 27, 2024 Time of Visit: 16:57 Supervising Physician: Dr. Gibson Primary Care Physician: DR. MARY ALEXIS Outpatient Specialists: DR. MALAGON, DR. ESCALANTE, DR. NAVARRO Inpatient Consults: DR. FOX, DR. NAVARRO, DR. MALAGON PROBLEM LIST: Acute on chronic hypoxic respiratory failure Multivessel coronary artery disease Status post elective left heart catheterization on 03/[address] Navarro- CV surgery evaluation Chronic Systolic and Diastolic CHF - POA- per echo 10/12/23 LVEF 40-45% with mildy impaired systolic and grade 2 diastolic dysfunction ESRD on MWF HD Chronic atrial fibrillation Anemia of chronic kidney disease with iron deficiency HX of Left pleural effusion, hypoxemic Respiratory Failure, chronic Hyponatremia, hypertension, hyperlipidemia, DM type II, afib, smoker (30 pack), HOSPITAL COURSE: HPI This is an 84 year old male with past medical history of ESRD on MWF hemodialysis, AFib, hypertension, diabetes mellitus, hyperlipidemia, current 30 pack year cigarette smoker who came to the hospital for an elective left heart catheterization was found to have multivessel coronary artery disease. According to the patient, he has been having intermittent shortness of breath with orthopnea and dyspnea on exertion. He was admitted on September and October of this year with shortness of breath and progressive kidney disease. He was started on hemodialysis since October. Patient had been compliant with his hemodialysis and his follow ups with specialties. On follow up with his electrophysiology Dr. Escalante for AFib, he was referred to cardiology for CTA. He had a coronary CT angio in December with severely heavily calcified MvCAD. He also has large left pleural effusion. CTA of the neck with bilateral stenosis, 90% of the right ICA and 70 to 80% stenosis of the left ICA. For these reasons, patient was sent for cardiac catheterization for better visualization which he had undergone today. Findings include critical ostial RCA and circumflex stenosis as well as critical left ostial left main and ostial RCA stenosis with heavily calcified ostial circumflex stenosis, no aortic stenosis, severe bilateral carotid artery stenosis, and PVD. He was referred to Cardiovascular surgery for further management. He will be admitted for hemodialysis post IV contrast and pending cardiovascular surgery recommendations. Hospital course Patient came to the hospital for an elective left heart catheterization with finding of multivessel coronary disease. Patient was referred to CV surgery who determined that patient is high risk for intervention. After hemodialysis patient is stable and cleared by Cardiology to be discharged home to follow up with them in 1 to 2 weeks. Patient is to follow up with cardiology, nephrology as well as primary care in 1 to 2 weeks. To continue home medications, no new prescription. Condition at discharge is stable. DISCHARGE MEDICATIONS: see below Pt hemodynamically stable and afebrile at time of discharge. PCP notified of primo mccauley admission, hospital course and discharge. Continued Medications: Amlodipine Besylate (Amlodipine Besylate) 5 Mg Tablet 5 MG PO HS, TAB Aspirin (Aspirin 81MG Chew Tab) 81 Mg Tab.chew 81 MG PO DAILY, TAB.CHEW Cholecalciferol (Vitamin D3) (Vitamin D3) 50 Mcg (2000 Unit) Tablet 50 MCG PO DAILY, TAB Cinacalcet HCl (Cinacalcet HCl) 30 Mg Tablet 30 MG PO QMOWEFR, TAB Fish Oil/Borage/Flax/Om3,6,9#1 ([place] 3-6-9 1,200 mg Softgel) 1,200 Mg Capsule 1200 MG PO BID, CAP Metoprolol Succinate (Metoprolol Succinate) 25 Mg Tab.er.24h 25 MG PO DAILY, TAB Pantoprazole Sodium (Pantoprazole Sodium) 40 Mg Tablet.dr 40 MG PO DAILY, TAB Rosuvastatin Calcium (Rosuvastatin Calcium) 5 Mg Tablet 5 MG PO DAILY, TAB [Sevelamer Carboonate] () 800 MG PO TIDMEALS Vit B Cmplx 3/FA/Vit C/Biotin (Zohra-Tiago Rx Tablet) 1 Mg-60 Mg-300 Mcg Tablet 1 TAB PO DAILY PHYSICAL EXAM: GENERAL: alert, weak, awake oriented x 3 HEENT: EOMI, Sclera non icteric, moist mucosa NECK: Supple, no JVD, trachea midline LUNGS: Clear breath sounds bilaterally. No wheezes HEART: Regular rate and rhythm. Normal S1 and S2, without murmurs ABD: Abdomen soft, nontender. Bowel sounds present EXT: No clubbing cyanosis or edema NEURO: Alert and oriented to person, follows commands FOLLOW-UP: Follow-up with PCP in 2-3 days Follow up with Nephrology on dialysis days Follow up with cardiology and CV surgery in 1 to 2 weeks RECOMMENDATIONS: See Discharge Instructions This case was seen and discussed with my supervising physician. More than 30 minutes spent on discharge process, including evaluation of the patient, discussion with nursing staff, medication reconciliation and follow-up appointments LUIS PITTMAN [facility] Mar 27, 2024 16:59
[2024-03-27] MEDS ORDERED: atorVAStatin 10 MG TABLET PO SCH (21:00)
[2024-03-27] MEDS ORDERED: [UNRECOGNIZED DRUG - OTHER] PO SCH (21:00)
[2024-03-27] MEDS ORDERED: FLAX PO SCH (21:00)
[2024-03-27] MEDS ORDERED: FISH OIL PO SCH (21:00)
[2024-03-27] MEDS ORDERED: BORAGE PO SCH (21:00)
[2024-03-27] MEDS ORDERED: amLODIPine 5 MG TAB PO SCH (21:00)
--- NOTE | 2024-03-27 23:14 | CONS ---
REFERRING PHYSICIAN: Hector Cannon II MD CONSULTING PHYSICIAN: Feng Castro MD REASON FOR CONSULTATION: Coronary artery disease. HISTORY OF PRESENT ILLNESS: This is an 84-year-old gentleman who has end-stage renal failure, on hemodialysis, relatively frail and presents with coronary artery disease. Cardiac catheterization demonstrates 90% RCA, 80% left internal carotid artery obstruction and multivessel coronary artery disease. On further examination, the patient has an ____ ascending aorta. I have had the opportunity to discuss the case with Dr. Cannon and Dr. Velasco. Dr. Velasco seems the patient is quite frail and has difficulty finishing regular dialysis run. After ample consideration, we decided as a group that the patient should be best treated medically at least as long as possible. TID: [id number] RECEIPT: [id number]
--- NOTE | 2024-03-27 23:25 | CONS ---
REFERRING PHYSICIAN: Ari Gibson MD REASON FOR CONSULTATION: ESRD, coronary artery disease. HISTORY OF PRESENT ILLNESS: An 84-year-old male with a history of end-stage renal disease, on dialysis 3 times per week. The patient with a history of diabetes mellitus and hypertension. The patient with a history of known coronary artery disease. The patient did undergo coronary catheterization that revealed significant 3-vessel disease. I did discuss the case in detail with Cardiovascular Surgery. He does receive dialysis on a Wednesday, Wednesday, Wednesday schedule and the patient is being seen in consultation for all of the above. PAST MEDICAL HISTORY: ESRD, coronary artery disease, hypertension, diabetes mellitus. PAST SURGICAL HISTORY: AV access. SOCIAL HISTORY: Lives independently. He has a long history of tobacco use. FAMILY HISTORY: No renal disease in the family. ALLERGIES: There are no allergies. MEDICATIONS: All noted. REVIEW OF SYSTEMS: GENERAL: The patient is feeling weak and tired. HEENT: No change in vision. No change in hearing. CARDIOVASCULAR: There is no current chest pain or palpitations. PULMONARY: No shortness of breath. GASTROINTESTINAL: The patient is tolerating a diet. MUSCULOSKELETAL: Complains of weakness. NEUROLOGIC: No seizures or focal deficits. PSYCHIATRIC: No history of hallucinations or psychosis. ENDOCRINE: Diabetes mellitus. No history of thyroid disease. HEME: History of anemia. No history of malignancy. PHYSICAL EXAMINATION: VITAL SIGNS: Blood pressure 110/44, pulse in the 50s. GENERAL: Chronically ill male, elderly, lying in bed on the medical floor. HEENT: Head is atraumatic. Pupils equal, roving to light. Oropharynx is without exudate. Nares clear. NECK: There is no JVP. There is no thyromegaly, no mass. CARDIOVASCULAR: Regular. There is no S3, S4 gallop. LUNGS: Coarse with equal thoracic movement. ABDOMEN: Soft, nondistended, nontender. EXTREMITIES: Reveal no clubbing, no cyanosis. NEUROLOGICAL: He is awake. He is alert. He is oriented. LABORATORY DATA: Hemoglobin 8, hematocrit 25. Sodium 133, BUN 4, creatinine 4.6. IMPRESSION: * Coronary artery disease. * Diabetes mellitus. * Hypertension. * Anemia. * End-stage renal disease. PLAN: The patient will receive dialysis today this consultation. He will continue with dialysis on a Wednesday, Wednesday, Abdiel schedule. The patient will be given Epogen for the anemia. I did discuss with Cardiovascular Surgery. The patient would be a poor candidate for any surgical intervention secondary to his advanced age and multiple medical conditions. We will continue to follow closely. Once the patient is discharged, he can follow up at the dialysis unit. TID: [id number] RECEIPT: [id number]
[2024-03-28 08:10] LABS: HEPATITIS B CORE AB TOTAL Non-Reactive (Nonreactive)
[2024-03-28] MEDS ORDERED: FAMOTIDINE 20MG TAB PO SCH (09:00)
[2024-03-28] MEDS ORDERED: Vitamin B Complex/Vit C/Folic Acid PO SCH (09:00)
[2024-03-28] MEDS ORDERED: ASPIRIN 81MG CHEW TAB PO SCH (09:00)
[2024-03-28] MEDS ORDERED: metOPROLol sucCINATE 25 MG TAB.SR.24H PO SCH (09:00)
[2024-03-31] MEDS ORDERED: EPOETIN ALFA-EPBX (NON-ESRD) 10,000 UNIT/ML VIAL SQ SCH (09:00)
== END 2024-03-27 18:39 | disposition home or self-care (01) ==
LOC: DAH 05:46 → INTOOBSV 05:47 → DAH 05:47 → DAHIP 05:47 → 2AH 10:25
PROVIDERS: ADMIT Internal Medicine Pulmonary Disease; ATTEND Internal Medicine Pulmonary Disease
DX: I25.10 Atherosclerotic heart disease of native coronary artery without angina pectoris (principal); I13.2 Hypertensive heart and chronic kidney disease with heart failure and with stage 5 chronic kidney disease, or end stage renal disease; E11.22 Type 2 diabetes mellitus with diabetic chronic kidney disease; D63.1 Anemia in chronic kidney disease; I50.42 Chronic combined systolic (congestive) and diastolic (congestive) heart failure; I48.20 Chronic atrial fibrillation, unspecified; I65.23 Occlusion and stenosis of bilateral carotid arteries; J96.21 Acute and chronic respiratory failure with hypoxia; N18.6 End stage renal disease; E87.1 Hypo-osmolality and hyponatremia; D50.9 Iron deficiency anemia, unspecified; E78.5 Hyperlipidemia, unspecified; E11.51 Type 2 diabetes mellitus with diabetic peripheral angiopathy without gangrene; F17.210 Nicotine dependence, cigarettes, uncomplicated; Z99.2 Dependence on renal dialysis; Z79.899 Other long term (current) drug therapy; Z98.890 Other specified postprocedural states
CPT/HCPCS: 80048; 83880; 85025; 85610; 85730; 71045; 93005; 36223; 36225; 93458; 86803; 82948 ×2; 86706; 87340; 86704; 36415 ×2; 94760 ×2; 94640; 94664; 90935; C1769; C1894 ×2; C1760; Q9965 ×2; G0378 ×2; J3490 ×3; J7030; J2250; J2175; J1644; Q9967; A4215; A4223 ×3; A4222; A4221; A4663; A4216; A4606; 99156; 99157; J0461; G0257

== ENCOUNTER → 2024-04-18 | Outpatient (CLI) | payer MEDICARE ==
[~2024-04-18] MED LIST changes: +IOHEXOL-350 75 ML VIAL IV ONE; -ROSU5TAB43 PO; +ROSU5TAB51 PO
--- NOTE | 2024-04-18 11:19 | HMCIMG ---
CT ANGIO ABD AORTA W RUNOFF REASON: PVD COMPARISON: None TECHNIQUE: Axial images are obtained from mid abdomen just above the aortic bifurcation through both feet. Images were acquired before and after IV contrast, 150 cc Omnipaque 350. 2-D and 3-D multiplanar reconstruction images were then performed. FINDINGS: There is calcification of the distal portion of the abdominal aorta without evidence of stenosis or aneurysm. There is marked calcification in the common and external iliac arteries as well as both common femoral arteries. There is 70-80% stenosis of the right common iliac artery, there is additional severe stenosis of the midportion right external iliac artery, there is severe 90% or greater stenosis of the right common femoral artery at the junction with the external iliac artery. There is extensive atherosclerotic change on the left, there is a severe focal stenosis of the distal left external iliac artery, there is only moderate stenosis of the left common femoral artery. Right leg runoff shows extensive calcified plaque in the superficial femoral artery. There are several areas of severe 80-90% stenosis, one proximal and one in the mid SFA. There is similar severe stenosis in the adductor canal with near occlusion. The popliteal artery also is atherosclerotic with severe focal stenosis. Trifurcation vessels are patent. There is extensive calcification in the trifurcation vessels causing difficulty of determining patency. There is three-vessel runoff to the ankle. The posterior tibial appears patent to the foot. The dorsalis pedis artery was not visualized. Left leg runoff also shows extensive calcification of the superficial femoral artery. There is severe focal stenosis in the midportion of the SFA and again in the adductor canal. The popliteal artery is atherosclerotic but patent. There is extensive calcification of the tibioperoneal trunk. Anterior tibial artery is occluded proximally. The posterior tibial and peroneal arteries appear patent to the ankle. The posterior tibial artery is patent to the foot. There are some distal reconstitution of the anterior tibial artery from the peroneal artery, the dorsalis pedis artery is patent and the foot as well. Nonvascular findings show extensive ascites and both lower quadrants. Bowel loops appear unremarkable. Soft tissues appear unremarkable. IMPRESSION: 1. Exam is limited by the seen limitations and body habitus, images only acquired from the distal abdominal aorta downward. 2. Extensive heavily calcified plaque present throughout, there are 2 areas of severe stenosis in the right common and external iliac arteries as well as severe stenosis of the right common femoral artery, there is less pronounced but definite stenosis left external iliac artery with moderate stenosis of the left common femoral artery. 3. Right leg runoff shows multiple severe stenoses in the superficial femoral artery as well as the popliteal artery, there is heavily calcified but patent three-vessel runoff to the ankle, posterior tibial artery is patent to the foot, dorsalis pedis artery was not visualized on the right. 4. Left leg runoff shows less pronounced stenoses in the SFA although there are several severe stenoses present, popliteal artery is atherosclerotic but not stenotic, the trifurcation vessels are heavily calcified, anterior tibial artery on the left is occluded proximally. 5. Distal runoff on the left is via the posterior tibial artery to the foot, peroneal artery to the ankle which reconstitutes the distal anterior tibial artery, dorsalis pedis is then patent to the foot. 6. Extensive ascites noted in both lower quadrants.
== END | disposition home or self-care (01) ==
LOC: RAH 08:24 → EDSTATUS 09:00
PROVIDERS: ATTEND Internal Medicine Cardiovascular Disease
DX: I70.201 Unspecified atherosclerosis of native arteries of extremities, right leg (principal); I70.202 Unspecified atherosclerosis of native arteries of extremities, left leg; I70.0 Atherosclerosis of aorta; R18.8 Other ascites
CPT/HCPCS: 75635; Q9967

== ENCOUNTER 2024-05-05 09:30 | Day surgery (SDC) | payer MEDICARE ==
[2024-05-03 10:33] LABS: BASOPHILS # (AUTO) 0.04 K/uL (0.00-0.20); BASOPHILS % (AUTO) 0.5 % (0.0-5.0); EOSINOPHILS % (AUTO) 1.3 % (0.0-8.0); HEMATOCRIT 27.6 % (42-54); IMMATURE GRANULOCYTE ABSOLUTE 0.04 K/uL (0-1); LYMPHOCYTES # (AUTO) 0.6 K/uL (1.0-4.8); MEAN CORPUSCULAR HEMOGLOBIN 31.3 pg (27.0-33.0); MEAN CORPUSCULAR HGB CONC 31.2 g/dL (32.0-36.0); MEAN CORPUSCULAR VOLUME 100.4 fL (79-99); MONOCYTES # (AUTO) 0.7 K/uL (0.1-1.0); MONOCYTES % (AUTO) 9.1 % (3.0-13.0); NEUTROPHILS # (AUTO) 6.4 K/uL (1.8-7.7); NEUTROPHILS % (AUTO) 80.6 % (40.0-77.0); PLATELET COUNT (AUTO) 377 K/uL (130-400); RED BLOOD CELL COUNT(AUTO) 2.75 MIL/uL (4.50-6.20); RED CELL DISTRIBUTION WIDTH 17.2 % (11.0-15.5); WHITE BLOOD COUNT (AUTO) 7.9 K/uL (4.8-10.8)
[2024-05-03 10:42] LABS: INR 1.1 (0.85-1.15); PROTHROMBIN TIME 11.8 SEC (9.6-11.6)
[2024-05-03 10:43] LABS: PARTIAL THROMBOPLASTIN TIME 29.6 SEC (26.3-35.5)
[2024-05-03 10:56] VITALS: BP 122/60; PULSE 61; RESP 14; TEMP 97.3
[2024-05-03 11:06] LABS: POTASSIUM 4.6 mmol/L (3.5-5.1)
[2024-05-03 11:07] LABS: B-TYPE NATRIURETIC PEPTIDE 2710 pg/mL (0-100)
--- NOTE | 2024-05-03 11:43 | EKG ---
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 : 1940 Requested By: Magdiel NAVARRO Order Number: [id number] Reading MD: Gustavo Ernandez Measurements Intervals [place] Rate: 57 P: 0 CO: 190 QRS: -53 QRSD: 164 T: 25 QT: 552 QTc: 539 Interpretive Statements Sinus rhythm Right bundle branch block Abnrm T, consider ischemia, anterolateral lds Compared to ECG 04/22/2024 10:16:26 Possible ischemia now present First degree AV block no longer present Myocardial infarct finding no longer present Electronically Signed On 05-04-2024 14:08:15 DIRECTOR OF CONSULTING SERVICES by Gustavo Ernandez Please click the below link to view image of tracing.
--- NOTE | 2024-05-03 12:26 | HMCIMG ---
CHEST 1VW REASON: PRE OP COMPARISON: 04/22/2024 FINDINGS: There is atelectasis and effusion in the left lung base. This appearance is unchanged. Lungs are otherwise clear. Heart size is stable with no vascular congestion. The Steinmann and bony thorax appear unremarkable. IMPRESSION: 1. Atelectasis and effusion left lung base unchanged.
--- NOTE | 2024-05-04 10:16 | NUR ---
RE: LABS REPORTED BMP/CBC/BNP AND CXR RESULTS TO CRISPIN ZABALA NP. NO NEW ORDERS RECEIVED.
[~2024-05-05] VITALS: Ht 180.3 cm; Wt 81.8 kg
[~2024-05-05 09:30] MED LIST changes: +CLOP75TA32 PO; -IOHEXOL-350 75 ML VIAL IV ONE
[2024-05-05 09:45] VITALS: BP 123/60; PULSE 62; RESP 16; TEMP 97.4
[2024-05-05] MEDS: 0.9%NACL 1000ML 1,000 ML IV SCH (11:02)
--- NOTE | 2024-05-05 12:41 | NUR ---
12:30 DR. NAVARRO HAD LONG CONVERSATION WITH PT, AND DAUGHTER. DR. NAVARRO EXPLAINED THAT IT WAS HIGHLY NOT POSSIBLE TO USE IMPELLA AND THAT THERE WAS MANY ARTERIES WITH 90% OCCLUSION AND THAT CHANCES FOR HAVING A SUCCESSFUL OUTCOME WAS 50%. AFTER PT AND FAMILY VIEWING HEART DIAGRAM AND HEARING OUT DR. NAVARRO CHOSE TO NOT GO THRU WITH THE PROCEDURE.
--- NOTE | 2024-05-05 13:00 | NUR ---
PT LEFT PREMISES ON WHEELCHAIR, AWAKE, ALERT AND ORIENTED X4. PT AND VERBALIZED THEY WILL CALL FOR FOLLOW P APPOINTMENT AFTER THE HOLIDAYS AR OVER PER DR. NAVARRO VERBALLY ASKED THEM TOO. DENIES CHATS PAIN. IV REMOVED, NO BLEEDING.
--- NOTE | 2024-05-05 13:19 | PN ---
This is an 84-year-old gentleman with multiple medical problems including chronic kidney disease and end-stage renal disease, on hemodialysis. He has advanced lung disease. The patient had been evaluated by us recently and underwent cardiac catheterization that identified an ostial RCA of 90% plus and an ostial calcified left main of 90% plus. The patient also had a high-grade critical lesion in the ostium of the circumflex coronary artery. Given the patient's anatomy, we had discussed the option of proceeding with surgical revascularization. The patient was seen by cardiothoracic surgery and felt to have a high risk for any surgical intervention by the STS score. The patient was turned down by the surgical team and I evaluated him in consideration for Impella supported angioplasty and stent placement to the ostial left main and ostial RCA if feasible. The patient will also have his circumflex addressed. This is clearly a complex procedure. Because of the anticipated Impella placement and the prior documentation of the patient's severe peripheral vascular disease, CT angiogram of the abdominal aorta was performed. Unfortunately, the patient has heavily calcified vessels including the thoracic and abdominal aorta as well as iliac arteries and femoral arteries. Moreover, the patient has critical stenosis in his access vessels. Today, I have had a detailed discussion with the patient and his family prior to any form of intervention. I have explained to him that this patient is at very high risk for any form of percutaneous intervention, particularly if he would not be able to get the Impella device advanced. Moreover, they understand that the process of getting an Impella device in tortuous calcified iliac and femoral arteries would in itself be a high risk intervention. After detailed discussion and appraising the patient and the family of the high risk status, they have requested to continue conservative medical management. They basically asked to continue with the current care and not intervene or proceed with any interventions at this time. Given the patient's choice and the family's choice, we will cancel the procedure for today and I will have the patient seen as an outpatient. TID: [id number] RECEIPT: [id number]
== END 2024-05-05 13:00 | disposition home or self-care (01) ==
LOC: DAH 09:30
PROVIDERS: ATTEND Internal Medicine Cardiovascular Disease
DX: I65.23 Occlusion and stenosis of bilateral carotid arteries (principal); Z53.8 Procedure and treatment not carried out for other reasons; N18.6 End stage renal disease; I25.10 Atherosclerotic heart disease of native coronary artery without angina pectoris; I45.10 Unspecified right bundle-branch block; Z99.2 Dependence on renal dialysis; Z79.899 Other long term (current) drug therapy; Z98.890 Other specified postprocedural states
CPT/HCPCS: 71045; 80048; 83880; 85025; 85610; 85730; 36415; 93005; J7030; A4215; A4222; A4221; A4663; A4216; A4606; A4223 ×3

== ENCOUNTER 2024-05-30 10:04 | Emergency (ER) | payer MEDICARE ==
[~2024-05-30] VITALS: Ht 180.3 cm; Wt 78.9 kg
--- NOTE | 2024-05-30 10:27 | ERN ---
ED Note History of Present Illness Stated Complaint: BLOOD TRANS Chief Complaint: Abnormal Labs Time Seen by MD: 10:14 Time Seen by Midlevel: 10:18 Dictation: 84-year-old male sent from PCP's office for abnormal labs. Patient states he had his blood drawn last Wednesday and was called today that the hemoglobin was 6.4. Patient has a history of ESRD goes to dialysis Mondays, Wednesdays, Fridays. Last dialysis being yesterday. Patient states he lives cm feeling fatigued and weak. Denies having any dark or blood stools. Denies feeling shortness a breath or chest pain. Allergies: Coded Allergies: No Known Drug Allergies (Unverified Allergy, Unknown, 11/06/14) Home Meds Reported Medications Clopidogrel Bisulfate (Clopidogrel) 75 Mg Tablet, 75 MG PO DAILY, TAB 04/23/24 [Sevelamer Carboonate] No Conflict Check, 800 MG PO TIDMEALS 03/24/24 Metoprolol Succinate (Metoprolol Succinate) 25 Mg Tab.er.24h, 25 MG PO DAILY, TAB 03/24/24 Aspirin (ASPIRIN 81MG CHEW TAB) 81 Mg Tab.chew, 81 MG PO DAILY, TAB.CHEW 03/24/24 Cinacalcet HCl (Cinacalcet HCl) 30 Mg Tablet, 30 MG PO QMOWEFR, TAB 03/24/24 Fish Oil/Borage/Flax/Om3,6,9#1 ([place] 3-6-9 1,200 mg Softgel) 1,200 Mg Capsule, 1200 MG PO BID, CAP 03/24/24 Cholecalciferol (Vitamin D3) (Vitamin D3) 50 Mcg (2000 Unit) Tablet, 50 MCG PO DAILY, TAB 03/24/24 Pantoprazole Sodium (Pantoprazole Sodium) 40 Mg Tablet.dr, 40 MG PO DAILY, TAB 03/24/24 Amlodipine Besylate (Amlodipine Besylate) 5 Mg Tablet, 5 MG PO HS, TAB 10/29/23 Vit B Cmplx 3/FA/Vit C/Biotin (Zohra-Tiago Rx Tablet) 1 Mg-60 Mg-300 Mcg Tablet, 1 TAB PO DAILY 09/29/23 Rosuvastatin Calcium (Rosuvastatin Calcium) 5 Mg Tablet, 5 MG PO DAILY, TAB 09/29/23 Past Medical History Past Medical History: Anemia, Hypertension, Renal Disese Surgical History: Other Surgical History Other: BACK, LEFT AVG Review of System Dictation Constitutional: Negative for fever,chills, and weight loss states feels generalized fatigue Eyes: Negative for injury, pain,redness, and discharge ENT: Negative for injury,pain or swelling Cardiovascular: Negative for chest pain, palpitations, and edema Respiratory: Negative for shortness of breath, cough, and wheezing, Abdomen/GI: Negative for abdominal pain, nausea, vomiting, diarrhea, and constipation Back: Negative for injury and pain : Negative for injury, bleeding and discharge MS/Extremity: Negative for injury and deformity Skin: Negative for rash, and discoloration Neuro: Negative for headache, weakness, numbness, tingling, and seizure Psych: Negative for suicide ideation, homicidal ideation, and hallucinations Review of Systems: was completed Initial Vital Sign VS Vital Signs Date Time Temp Pulse Resp B/P (MAP) Pulse Ox O2 Delivery O2 Flow Rate FiO2 05/30/24 10:18 98.2 49 20 105/34 99 Room Air 0 Physical Exam Dictation General: awake, alert, NAD Head/Face: Normocephalic, atraumatic Eyes: PERRL, EOMI, vision at baseline ENT: oral cavity clear, TMs clear, no signs of infection Neck: Trachea midline, supple, no nuchal rigidity Cardiovascular: RRR, normal S1/S2, No MRGs, no JVD Respiratory: Diminished lower lung field bilaterally, no respiratory distress, No rales or wheezes Abdomen: Soft, non-tender, non-distended, normal bowel sounds, no guarding or rebound. Skin: Warm, dry, normal turgor, no rash MS/Extremity: Pulses equal, no cyanosis, neurovascular intact, FROM Neuro: COAx4, GCS 15, strength 5/5, CN 2-12 intact, normal cerebellar exam, normal gait, Psych: Normal behavior, mood, and affect normal Results (Laboratory/Radiology) Laboratory/Radiology Laboratory Tests Test 05/30/24 10:46 White Blood Count 10.1 K/uL (4.8-10.8) Red Blood Count 2.11 MIL/uL (4.50-6.20) L Hemoglobin 6.7 g/dL (14.0-18.0) *L Hematocrit 22.0 % (42-54) L Mean Corpuscular Volume 104.3 fL (79-99) H Mean Corpuscular Hemoglobin 31.8 pg (27.0-33.0) Mean Corpuscular Hemoglobin Concent 30.5 g/dL (32.0-36.0) L Red Cell Distribution Width 19.5 % (11.0-15.5) H Platelet Count 396 K/uL (130-400) Mean Platelet Volume 9.7 fL (7.5-10.5) Immature Granulocyte % (Auto) 0.7 % (0-1) Neutrophils (%) (Auto) 83.4 % (40.0-77.0) H Lymphocytes (%) (Auto) 5.9 % (21.0-51.0) L Monocytes (%) (Auto) 9.1 % (3.0-13.0) Eosinophils (%) (Auto) 0.5 % (0.0-8.0) Basophils (%) (Auto) 0.4 % (0.0-5.0) Neutrophils # (Auto) 8.4 K/uL (1.8-7.7) H Lymphocytes # (Auto) 0.6 K/uL (1.0-4.8) L Monocytes # (Auto) 0.9 K/uL (0.1-1.0) Eosinophils # (Auto) 0.05 K/uL (0.00-0.70) Basophils # (Auto) 0.04 K/uL (0.00-0.20) Absolute Immature Granulocyte (auto 0.07 K/uL (0-1) Nucleated Red Blood Cells 0.0 % (0.0-0.19) White Cell Morphology Comment See comments Red Blood Cell Morphology See comments Sodium Level 137 mmol/L (136-145) Potassium Level 3.9 mmol/L (3.5-5.1) Chloride Level 97 mmol/L (101-111) L Carbon Dioxide Level 31 mmol/L (21-32) Blood Urea Nitrogen 40 mg/dL (7-18) H Creatinine 3.9 mg/dL (0.5-1.3) H Glomerular Filtration Rate Calc 15 mL/min (>90) Random Glucose 70 mg/dL (70-105) Total Calcium 8.4 mg/dL (8.5-10.1) L Labs Reviewed?: Yes ED Course ED Course Orders Procedure Category Date Status Time Cbc With Differential LAB 05/30/24 Complete 10:22 Basic Metabolic Panel LAB 05/30/24 Complete 10:22 12 Lead Ekg Tracing- EKG 05/30/24 Complete Technical 10:22 Type And Screen BBK 05/30/24 Complete 10:22 Renal Dialysis Diet DIET 05/30/24 Transmitted Lunch Rbc-Active Bleeding BBK 05/30/24 Complete 12:23 Vital Signs Date Time Temp Pulse Resp B/P (MAP) Pulse Ox O2 Delivery O2 Flow Rate FiO2 05/30/24 10:18 98.2 49 20 105/34 99 Room Air 0 Medical Decision Making MDM MDM: 84-year-old male sent from PCP's office for abnormal labs. Patient states he had his blood drawn last Wednesday and was called today that the hemoglobin was 6.4. Patient has a history of ESRD goes to dialysis Mondays, Wednesdays, Fridays. Last dialysis being yesterday. Patient states he is feeling fatigued and weak. Denies having any dark or blood stools. Denies feeling shortness a breath or chest pain.CBC shows a leukocytosis, macrocytic anemia, hemoglobin of 6.7. Ordered 1 unit of PRBC. No thrombocytopenia. Chemistry shows a potassium of 3.9, elevated BUN and creatinine, consistent with a ESRD. Patient's next dialysis is tomorrow. Patient offered admission to further investigate the anemia in repeat blood work patient refused to be admitted, Dr. Morrow at came to see patient in the ER and was told patient refused to be admitted. Dr. Morrow was okay with patient being sent home. Patient states he was told by the PCP to start taking the aspirin. Educated patient to return to the ER if any symptoms worsen. Patient verbalized understanding, answered all questions. Differential diagnosis: Anemia, dehydration, electrolyte abnormality Rationale: Tests considered and ordered secondary to shared decision making include: Previous outside records reviewed: Old ER visits. Risk of complication and/or morbidity or mortality of patient management: None Medications-Per medication reconciliation Need for hospitalization: Patient does not meet criteria for hospitalization. Need for emergency major/minor surgery: No There are no social concerns with this patient. Prescription drug management Prescriptions will include symptomatic care Patient's prior external medical records from other ER visits were reviewed by me as indicated. Prior testing and results from previous visits were reviewed. Prior tests were taken into account with medical decision making and resource utilization, independent historian/historians were used to obtain complete medical history. I independently interpreted the test that were performed, results were reviewed by me and considered findings on radiology if ordered. Medical management and examination interpretation discussions were had by me with other qualified healthcare professionals as indicated for the patient's care. DX & DISP Disposition: Discharge Departure Impression: Primary Impression: Anemia Additional Impression: End stage renal disease Condition: Stable Referrals: VANESA HERNANDEZ M.D. (PCP) Time of Disposition: 14:39 I have reviewed the case, and I agree with, Diagnosis and Plan RUSS RUIZ NP May 30, 2024 10:27
--- NOTE | 2024-05-30 10:41 | EKG ---
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 : 1940 Requested By: RUSS RUIZ Order Number: [id number] Reading MD: Lilli Knapp Measurements Intervals [place] Rate: 49 P: 38 IA: 333 QRS: -44 QRSD: 152 T: 220 QT: 524 QTc: 474 Interpretive Statements Sinus bradycardia Prolonged IA interval Probable left atrial enlargement Right bundle branch block Inferior infarct, old Anterolateral infarct, age indeterminate Compared to ECG 05/03/2024 11:14:18 First degree AV block now present Myocardial infarct finding now present Sinus rhythm no longer present Possible ischemia no longer present Electronically Signed On 05-31-2024 08:10:16 DEVICE ENGINEER by Lilli Knapp Please click the below link to view image of tracing.
[2024-05-30 11:12] LABS: BASOPHILS # (AUTO) 0.04 K/uL (0.00-0.20); BASOPHILS % (AUTO) 0.4 % (0.0-5.0); EOSINOPHILS # (AUTO) 0.05 K/uL (0.00-0.70); EOSINOPHILS % (AUTO) 0.5 % (0.0-8.0); IMMATURE GRANULOCYTE ABSOLUTE 0.07 K/uL (0-1); LYMPHOCYTES # (AUTO) 0.6 K/uL (1.0-4.8); LYMPHOCYTES % (AUTO) 5.9 % (21.0-51.0); MEAN CORPUSCULAR HEMOGLOBIN 31.8 pg (27.0-33.0); MEAN CORPUSCULAR HGB CONC 30.5 g/dL (32.0-36.0); MEAN CORPUSCULAR VOLUME 104.3 fL (79-99); MONOCYTES # (AUTO) 0.9 K/uL (0.1-1.0); MONOCYTES % (AUTO) 9.1 % (3.0-13.0); NEUTROPHILS # (AUTO) 8.4 K/uL (1.8-7.7); NEUTROPHILS % (AUTO) 83.4 % (40.0-77.0); PLATELET COUNT (AUTO) 396 K/uL (130-400); RED BLOOD CELL COUNT(AUTO) 2.11 MIL/uL (4.50-6.20); RED CELL DISTRIBUTION WIDTH 19.5 % (11.0-15.5); WHITE BLOOD COUNT (AUTO) 10.1 K/uL (4.8-10.8)
[2024-05-30 11:18] LABS: CREATININE 3.9 mg/dL (0.5-1.3); POTASSIUM 3.9 mmol/L (3.5-5.1)
--- NOTE | 2024-05-30 14:03 | CONS ---
NEPHROLOGY CONSULTATION NOTE Date/Time Patient Seen: May 30, 2024 1240 Reason for Consultation: Anemia, possible GI bleed, end stage renal disease HISTORY OF PRESENT ILLNESS: This is an 84-year-old male with a past medical history of end-stage renal disease on hemodialysis Wednesday, anemia, coronary artery disease, hyperlipidemia, hypertension, anemia, chronic atrial fibrillation aspirin and Plavix. He presented to the emergency room with complaints of abnormal labs from dialysis center He received dialysis yesterday He was noted to have hemoglobin of 6.7. Electrolytes are stable. He has a recent hospital admission for similar reasons for he had a EGD and colonoscopy with no acute findings. He was seen by Cardiology and aspirin was discontinued. He states he has been compliant with hemodialysis He was seen in the emergency room, in no acute distress Family at the bedside Prognosis remains guarded REVIEW OF SYSTEMS: GENERAL: Positive for generalized weakness NEUROLOGIC: Negative for any blurry vision, blind spots, double vision, facial asymmetry, dysphagia, dysarthria, hemiparesis, hemisensory deficits, vertigo, ataxia. HEENT: Negative for any head trauma, neck trauma, neck stiffness, photophobia, phonophobia, sinusitis, rhinitis. CARDIAC: Negative for any chest pain, dyspnea on exertion, paroxysmal nocturnal dyspnea, peripheral edema. PULMONARY: Negative for any shortness of breath, wheezing, COPD, or TB exposure. GASTROINTESTINAL: Negative for any abdominal pain, nausea, vomiting, bright red blood per rectum, melena. GENITOURINARY: Negative for any dysuria, hematuria, incontinence. INTEGUMENTARY: Negative for any rashes, cuts, insect bites. RHEUMATOLOGIC: Negative for any joint pains, photosensitive rashes, history of vasculitis or kidney problems. HEMATOLOGIC: Negative for any abnormal bruising, frequent infections or bleeding. PAST MEDICAL HISTORY: End-stage renal disease Anemia Coronary artery disease Hyperlipidemia Hypertension Chronic atrial fibrillation PAST SURGICAL HISTORY: AV access creation, back surgery PAST SOCIAL HISTORY: Denies use of alcohol, tobacco or illicit drugs FAMILY HISTORY: Noncontributory PHYSICAL EXAM: GENERAL: Alert and oriented x 3. No acute distress. Well-nourished. EYES: EOMI. Anicteric. HENT: Moist mucous membranes. No scleral icterus. No cervical lymphadenopathy. LUNGS: Clear to auscultation bilaterally. No accessory muscle use. CARDIOVASCULAR: Regular rate and rhythm. No murmur. No JVD. ABDOMEN: Soft, non-tender and non-distended. No palpable masses. EXTREMITIES: No edema. Non-tender.?SKIN: No rashes or lesions. Warm. NEUROLOGIC: No focal neurological deficits. CN II-XII grossly intact, but not individually tested. PSYCHIATRIC: Cooperative. Appropriate mood and affect. MEDICATIONS: [ ] Vital Signs (last 8hr) Date Time Temp Pulse Resp B/P (MAP) Pulse Ox O2 Delivery O2 Flow Rate FiO2 05/30/24 10:18 98.2 49 20 105/34 99 Room Air 0 DIAGNOSTICS / RADIOLOGY: LABORATORY: [ ] Hematology Labs: Test 05/30/24 10:46 Range/Units White Blood Count 10.1 4.8-10.8 K/uL Red Blood Count 2.11 L 4.50-6.20 MIL/uL Hemoglobin 6.7 *L 14.0-18.0 g/dL Hematocrit 22.0 L 42-54 % Mean Corpuscular Volume 104.3 H 79-99 fL Mean Corpuscular Hemoglobin 31.8 27.0-33.0 pg Mean Corpuscular Hemoglobin Concent 30.5 L 32.0-36.0 g/dL Red Cell Distribution Width 19.5 H 11.0-15.5 % Platelet Count 396 130-400 K/uL Mean Platelet Volume 9.7 7.5-10.5 fL Immature Granulocyte % (Auto) 0.7 0-1 % Neutrophils (%) (Auto) 83.4 H 40.0-77.0 % Lymphocytes (%) (Auto) 5.9 L 21.0-51.0 % Monocytes (%) (Auto) 9.1 3.0-13.0 % Eosinophils (%) (Auto) 0.5 0.0-8.0 % Basophils (%) (Auto) 0.4 0.0-5.0 % Neutrophils # (Auto) 8.4 H 1.8-7.7 K/uL Lymphocytes # (Auto) 0.6 L 1.0-4.8 K/uL Monocytes # (Auto) 0.9 0.1-1.0 K/uL Eosinophils # (Auto) 0.05 0.00-0.70 K/uL Basophils # (Auto) 0.04 0.00-0.20 K/uL Absolute Immature Granulocyte (auto 0.07 0-1 K/uL Nucleated Red Blood Cells 0.0 0.0-0.19 % White Cell Morphology Comment See comments Red Blood Cell Morphology See comments Chemistry Labs: Test 05/30/24 10:46 Range/Units Sodium Level 137 136-145 mmol/L Potassium Level 3.9 3.5-5.1 mmol/L Chloride Level 97 L 101-111 mmol/L Carbon Dioxide Level 31 21-32 mmol/L Blood Urea Nitrogen 40 H 7-18 mg/dL Creatinine 3.9 H 0.5-1.3 mg/dL Glomerular Filtration Rate Calc 15 >90 mL/min Random Glucose 70 70-105 mg/dL Total Calcium 8.4 L 8.5-10.1 mg/dL ASSESSMENT: Concern for GI bleed Anemia End-stage renal disease Hypertension Hyperlipidemia Coronary artery disease Atrial fibrillation PLAN: Labs and Diagnostics/ Radiology personally reviewed and interpreted by myself and supervising physician We have reviewed dialysis and external records in detail Recommend for patient to receive PRBC transfusion and be admitted for further work-up, however patient wants to be discharged. He will continue with Iron and Epon on dialysis days Spoke to Dr. Natalya Cannon and aspirin has been discontinued Continue dialysis schedule Wednesday Recommend cardiology and GI consult 1.5 L fluid restriction Continue to monitor H&H Epogen on dialysis days, as needed Continue with frequent monitoring of renal function, anemia, and electrolytes Order CBC, BMP, and electrolytes in the morning May use Dilaudid 0.5 mg IV every 6 hours as needed for severe pain Maintain glucose between 100-180mg/dl, AccuCheks QC and HS Monitor blood pressure adjust medication doses as needed Maintain normotensive state; keep systolic blood pressure between 110-160 Strict intake, output, and daily weight should be monitored Please renally adjust medications. Avoid nephrotoxics and nonsteroidal drugs. We will continue to monitor the patient closely We have discussed with the other team physicians in detail about the care plan Thank you for allowing us to participate in the care of this patient ATTESTATION BY PHYSICIAN I have seen and examined the patient. I reviewed the documentation, medical decision making, and treatment plan as noted by the mid-level provider above. I agree with the findings and plan of care. JADEN MALAGON MD, [facility] May 30, 2024 14:03
[2024-05-30 15:16] VITALS: BP 115/41; PULSE 57; RESP 18; TEMP 98.1; O2SAT 97
== END 2024-05-30 13:08 | disposition home or self-care (01) ==
LOC: EDH 10:04
DX: D64.9 Anemia, unspecified (principal); I12.0 Hypertensive chronic kidney disease with stage 5 chronic kidney disease or end stage renal disease; N18.6 End stage renal disease; Z99.2 Dependence on renal dialysis; Z79.02 Long term (current) use of antithrombotics/antiplatelets; Z79.82 Long term (current) use of aspirin; Z79.899 Other long term (current) drug therapy
CPT/HCPCS: 99285; 36430; 80048; 85025; 86850; 86900; 86901; 86923; 36415; 93005; P9016

== ENCOUNTER → 2024-10-12 | Outpatient (CLI) | payer MEDICARE ==
[~2024-10-12] MED LIST changes: -ASPI-1005 PO; +CYAN-35 PO; +FOLI0.8C PO
--- NOTE | 2024-10-12 14:48 | HMCIMG ---
CT CHEST W/O CONTRAST HISTORY: Pleural effusion COMPARISON: None TECHNIQUE: Multiple sequential axial images of the chest were obtained from the thoracic inlet through upper abdomen. Patient was not given contrast through intravenous route. FINDINGS: There is no evidence of pulmonary nodule or parenchymal disease. There is left lung volume loss. Loculated left pleural effusion is seen. Tiny right pleural effusion is seen. There is ascites. There is atherosclerosis. There is no evidence of pneumothorax. There are normal size mediastinal and hilar lymph nodes. The heart is enlarged. Coronary artery calcifications are seen. Degenerative changes of the thoracolumbar spine are present. There is no evidence of adrenal nodule. IMPRESSION: 1. Left lung volume loss. Loculated left pleural effusion. Tiny right pleural effusion. CT was performed with one or more following dose reduction techniques: automated exposure control, adjustment of the mA and kv according to patient's size, or use of a iterative reconstruction technique.
== END | disposition home or self-care (01) ==
LOC: RAH 12:40
PROVIDERS: ATTEND Family Medicine
DX: J44.9 Chronic obstructive pulmonary disease, unspecified (principal); J18.9 Pneumonia, unspecified organism; J90 Pleural effusion, not elsewhere classified; R18.8 Other ascites; I70.90 Unspecified atherosclerosis; I51.7 Cardiomegaly; I25.10 Atherosclerotic heart disease of native coronary artery without angina pectoris; M47.815 Spondylosis without myelopathy or radiculopathy, thoracolumbar region
CPT/HCPCS: 71250